=== PATIENT | male | born 1955 | race Caucasian/White ===

== ENCOUNTER → 2021-11-16 13:52 | Outpatient (BNVA) | payer MEDICARE, SELFPAY | PROVIDERS: Family Provider Nurse Practitioner Family; Visit Provider Specialist | DX: M19.012 Primary osteoarthritis, left shoulder (principal); M25.512 Pain in left shoulder; M25.511 Pain in right shoulder | CPT/HCPCS: 20610; 73030; 99204 ==

== ENCOUNTER 2022-01-07 13:55 | Outpatient (CLI) | payer MEDICARE, SELFPAY ==
--- NOTE | 2022-01-07 14:07 | XR_ITS ---
WS: [email or web address] KUB, AP view, 01/07/2022 Clinical Data: Hydronephrosis Comparison: None. Findings: No abnormal intraabdominal masses or calcifications are seen. There is no dilatated small bowel or ev idence of obstruction. There is minimal fecal material in the transverse colon. XR/XR KUB [id number] Impression: Negative KUB.
== END 2022-01-07 13:56 | disposition home or self-care (01) ==
LOC: RAD 13:57
PROVIDERS: PCP Family Medicine; Visit Provider Urology
DX: N13.30 Unspecified hydronephrosis (principal); N20.1 Calculus of ureter
CPT/HCPCS: 74018; 81003; 99203

== ENCOUNTER 2022-01-15 08:16 | Outpatient (CLI) | payer MEDICARE, SELFPAY ==
--- NOTE | 2022-01-15 08:21 | XR_ITS ---
WS: [email or web address] XR KUB [id number] REASON FOR EXAM: N20.1 - Calculus of ureter FINDINGS: On the CT scan of 12/24/2021, a left ureteral calculus was present at the L4 level. On the current study there is a linear calcific density in the left pelvis at the level of the sacroc occygeal junction that likely represents the same calculus in the distal left ureter near the left ur eteral vesicle junction. In retrospect this same calculus can be identified more proximal in the left pelvis on the KUB of 01/07/2022. XR/XR KUB [id number] IMPRESSION: Distally migrating left ureteral calculus likely near the left ureterovesical j unction at this time.
== END 2022-01-15 08:17 | disposition home or self-care (01) ==
LOC: RAD 08:18
PROVIDERS: PCP Family Medicine; Visit Provider Urology
DX: N20.1 Calculus of ureter (principal)
CPT/HCPCS: 74018; 81003; 99213

== ENCOUNTER 2022-01-22 10:47 | Outpatient (CLI) | payer MEDICARE, SELFPAY ==
--- NOTE | 2022-01-22 10:53 | XR_ITS ---
WS: [email or web address] KUB, AP view, 01/22/2022 Clinical Data: STONES Comparison: KUB, 01/15/2022. Findings: No abnormal intraabdominal masses or calcifications are seen. There is no dilatated small bowel or ev idence of obstruction. No pelvic calcifications are seen. The abdomen has only minimal fecal material and colon gas in the upper abdomen. XR/XR KUB [id number] Impression: Negative KUB.
== END 2022-01-22 10:48 | disposition home or self-care (01) ==
LOC: RAD 10:49
PROVIDERS: PCP Family Medicine; Visit Provider Urology
DX: N20.1 Calculus of ureter (principal)
CPT/HCPCS: 74018; 81003; 99213

== ENCOUNTER 2022-02-12 10:08 | Outpatient (CLI) | payer MEDICARE, SELFPAY ==
--- NOTE | 2022-02-12 10:30 | XR_ITS ---
WS: [email or web address] KUB, AP view, 02/12/2022 Clinical Data: STONES Comparison: KUB, 01/22/2022. Findings: No abnormal intraabdominal masses or calcifications are seen. There is no dilatated small bowel or ev idence of obstruction. No calcifications are seen in the true pelvis. XR/XR KUB [id number] Impression: Negative KUB.
== END 2022-02-12 10:09 | disposition home or self-care (01) ==
LOC: RAD 10:10
PROVIDERS: PCP Family Medicine; Visit Provider Urology
DX: N20.1 Calculus of ureter (principal)
CPT/HCPCS: 74018; 81003; 99213

== ENCOUNTER → 2023-01-19 09:49 | Outpatient (BNVA) | payer MEDICARE, SELFPAY | PROVIDERS: PCP Family Medicine; Visit Provider Nurse Practitioner Family | DX: L82.1 Other seborrheic keratosis (principal); L72.0 Epidermal cyst; D22.5 Melanocytic nevi of trunk; L57.8 Other skin changes due to chronic exposure to nonionizing radiation; L57.0 Actinic keratosis | CPT/HCPCS: 17004; 99213 ==

== ENCOUNTER → 2023-08-18 09:08 | Outpatient (BNVA) | payer MEDICARE, SELFPAY | PROVIDERS: PCP Family Medicine; Visit Provider Nurse Practitioner Family | DX: L57.0 Actinic keratosis (principal); L82.1 Other seborrheic keratosis; L72.0 Epidermal cyst; D22.5 Melanocytic nevi of trunk; L57.8 Other skin changes due to chronic exposure to nonionizing radiation; L91.8 Other hypertrophic disorders of the skin; L82.0 Inflamed seborrheic keratosis | CPT/HCPCS: 10060; 17000; 17110; 99213 ==

== ENCOUNTER → 2024-08-17 09:14 | Outpatient (BNVA) | payer MEDICARE, SELFPAY | PROVIDERS: PCP Family Medicine; Visit Provider Nurse Practitioner Family | DX: L82.1 Other seborrheic keratosis (principal); D22.5 Melanocytic nevi of trunk; L57.8 Other skin changes due to chronic exposure to nonionizing radiation; L91.8 Other hypertrophic disorders of the skin; L82.0 Inflamed seborrheic keratosis; Z78.9 Other specified health status; L53.8 Other specified erythematous conditions; L29.89 Other pruritus; R20.8 Other disturbances of skin sensation; L57.0 Actinic keratosis | CPT/HCPCS: 17000; 17110; 99213 ==